=== PATIENT | male | born 1955 | race Hispanic/Latino ===

== ENCOUNTER 2018-06-26 21:50 | Observation (INO) | payer MEDICARE, OTHER ==
[2018-06-26 21:50] VITALS: BMI 24.1
[2018-06-26] MEDS ORDERED: Aspirin 325 mg EC Tablets PO STA (22:17)
--- NOTE | 2018-06-26 22:19 | C.PDOC ---
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 Patient reports he was out with a group of friends in [place], patient wanted to go to [facility] and started walking. Patient states that in the process of walking he started feeling chest pain with SOB. Patient reports 2 weeks ago he had cardiac stent done in his left leg. Patient states he has chest pain on and off but has never been this bad. Patient also states since his surgery his left leg has been swollen. Patient denies fever, chills, nausea, vomit, dizziness, headache, weakness, numbness. Chest pain persists and is 5/10. Time Seen by Provider: 06/26/18 22:08 Chief Complaint (Nursing): Chest Pain History Per: Patient History/Exam Limitations: no limitations Onset/Duration Of Symptoms: Hrs Current Symptoms Are (Timing): Still Present Quality: "Pain" Modifying Factors: None Exacerbating Factors: Exertion Recent travel outside of the [place]: No Additional History Per: Patient Past Medical History Reviewed: Historical Data, Nursing Documentation, Vital Signs Vital Signs: Last Vital Signs Temp 97.2 F L 06/26/18 22:00 Pulse 84 06/26/18 22:00 Resp 16 06/26/18 22:00 BP 131/68 06/26/18 22:00 Pulse Ox 96 06/26/18 22:00 - Medical History PMH: Arthritis, Asthma, Bronchitis, CAD, COPD, Depression, Emphysema, Fractures (Left ankle and rib fractures), HTN, Hypercholesterolemia, TIA Surgical History: Appendectomy, Coronary Stent Other Surgeries: peripheral vascular surgery - [facility] Procedures C-VASC SCAN/ISOTOP FUNCT (12/16/97) CORONAR ARTERIOGR-2 CATH (01/13/13) DILATION OF 2 COR ART WITH DRUG-ELUT INTRALUM, PERC APPROACH (11/09/15) DILATION OF L POPL ART USING DRUG BLLN, PERC APPROACH (06/10/18) DX ULTRASOUND NEC (11/30/14) DX ULTRASOUND-HEART (12/16/97) EXTIRPATION OF MATTER FROM L POPL ART, PERC APPROACH (06/10/18) INFLUENZA VACCINATION (05/20/14) INJECT ANTICOAGULANT (09/02/12) INJECT/INFUSE NEC (01/14/15) INTRODUCE OF OTH THERAP SUBST INTO RESP TRACT, VIA OPENING (05/09/18) LEFT HEART CARDIAC CATH (01/13/13) LT HEART ANGIOCARDIOGRAM (01/13/13) MEASURE OF CARDIAC SAMPL & PRESSURE, L HEART, PERC APPROACH (11/09/15) NEBULIZER THERAPY (08/11/13) PERCUTAN NEEDLE BIOPSY OF PROSTATE (11/30/14) PLAIN RADIOGRAPHY OF LEFT HEART USING LOW OSMOLAR CONTRAST (11/09/15) PLAIN RADIOGRAPHY OF MULT COR ART USING L OSM CONTRAST (11/09/15) RIGID PROCTOSIGMOIDOSCOPY (05/20/14) TREADMILL STRESS TEST (12/16/97) Family History: States: CAD - Social History Hx Tobacco Use: Yes Hx Alcohol Use: No Hx Substance Use: No - Immunization History Hx Tetanus Toxoid Vaccination: No Hx Influenza Vaccination: No Hx Pneumococcal Vaccination: No Review Of Systems Constitutional: Negative for: Fever, Chills Eyes: Negative for: Vision Change Cardiovascular: Positive for: Chest Pain. Negative for: Palpitations Respiratory: Positive for: Shortness of Breath. Negative for: Cough Gastrointestinal: Negative for: Nausea, Vomiting, Abdominal Pain Skin: Negative for: Rash Neurological: Negative for: Weakness, Numbness, Headache, Dizziness Physical Exam - Physical Exam Appears: Non-toxic, No Acute Distress Skin: Normal Color, Warm, Dry Head: Atraumatic, Normacephalic Eye(s): bilateral: Normal Inspection Oral Mucosa: Moist Neck: Normal ROM, Supple Chest: Symmetrical Cardiovascular: Rhythm Regular Respiratory: Normal Breath Sounds, No Rales, No Rhonchi, No Wheezing Gastrointestinal/Abdominal: Soft, No Tenderness, No Guarding, No Rebound Extremity: Normal ROM, No Tenderness, Capillary Refill (< 2 seconds), Swelling (left lower leg), Other (right leg cold to touch.) Extremity: Bilateral: Other (posterior tibial pulse NML) Neurological/Psych: Oriented x3, Normal Speech, Normal Cognition Gait: Steady ED Course And Treatment - Laboratory Results Result Diagrams: 06/26/18 22:26 06/26/18 22:26 Lab Interpretation: No Acute Changes ECG: Interpreted By Me ECG Rhythm: Sinus Rhythm (with LVH), ST/T Changes, Nonspecific Changes ECG Interpretation: No Acute Changes O2 Sat by Pulse Oximetry: 96 (ON RA) Pulse Ox Interpretation: Normal - Radiology CXR: Interpreted by Me CXR Interpretation: Yes: No Acute Disease Reevaluation Time: 23:02 Reassessment Condition: Improved - Physician Consult Information Time Consulting Physician Contacted: 23:04 Physician Contacted: Missael Lancaster Outcome Of Conversation: Discussed with Dr Lancaster. He agrees to keep patient on his service for cardiac observation. Medical Decision Making Medical Decision Making: Plan: * EKG * Labs * CXR * Aspirin 325 mg PO Disposition - Disposition Disposition: HOSPITALIZED Disposition Time: 23:06 Condition: IMPROVED - POA Present On Arrival: None - Clinical Impression Clinical Impression: Chest pain - Scribe Statement The provider has reviewed the documentation as recorded by the Scribe Reji Solorzano All medical record entries made by the Scribe were at my direction and personally dictated by me. I have reviewed the chart and agree that the record accurately reflects my personal performance of the history, physical exam, medical decision making, and the department course for this patient. I have also personally directed, reviewed, and agree with the discharge instructions and disposition.
[2018-06-26] MEDS ORDERED: Aspirin 325 mg EC Tablets PO ONE (22:27)
[2018-06-26 22:35] LABS: BASO # 0.1 K/uL (0.0-0.2); BASO % 1.9 % (0.0-2.0); EOS # 0.4 K/uL (0.0-0.7); EOS % 5.9 % (0.0-4.0); LYMPH % 15.9 % (20.0-40.0); MEAN CELL VOLUME 98.3 fL (80.0-94.0); MEAN CORPUSCULAR HEMOGLOBIN 33.8 pg (27.0-31.0); MEAN CORPUSCULAR HGB CONC 34.4 g/dL (33.0-37.0); MEAN PLATELET VOLUME 7.7 fL (7.2-11.7); MONO # 0.7 K/uL (0.0-0.8); MONO % 10.9 % (0.0-10.0); NEUT # 4.1 K/uL (1.8-7.0); NEUT % 65.4 % (50.0-75.0); NRBC % 0.1 % (0.0-2.0); RBC 3.86 Mil/uL (4.40-5.90); RED CELL DISTRIBUTION WIDTH 14.8 % (11.5-14.5); WHITE BLOOD COUNT 6.2 K/uL (4.8-10.8)
[2018-06-26 22:46] LABS: ALB/GLOB RATIO 1.5 (1.0-2.1); ALBUMIN 4.2 g/dL (3.5-5.0); ALT/SGPT 42 U/L (21-72); AST/SGOT 46 U/L (17-59); BLOOD UREA NITROGEN 11 mg/dL (9-20); CALCIUM 9.3 mg/dl (8.6-10.4); GFR NON-AFRICAN AMERICAN > 60
--- NOTE | 2018-06-27 08:21 | RAD ---
Date of service: 06/26/2018 HISTORY: chest pain COMPARISON: None available. FINDINGS: LUNGS: Mild venous congestion. Biapical pleural thickening with upper lobe granulomatous changes. Bilateral hilar prominence. PLEURA: No significant pleural effusion identified, no pneumothorax apparent. CARDIOVASCULAR: No aortic atherosclerotic calcification present. Normal cardiac size. Tortuous ectatic aorta. OSSEOUS STRUCTURES: No significant abnormalities. VISUALIZED UPPER ABDOMEN: Normal. OTHER FINDINGS: None. IMPRESSION: Mild venous congestion. Biapical pleural thickening with upper lobe granulomatous changes. Bilateral hilar prominence.
[2018-06-27] MEDS: Enoxaparin 40 mg Syringe SC SCH (09:17)
[2018-06-27] MEDS: Aspirin 325 mg EC Tablets PO SCH (09:17)
--- NOTE | 2018-06-27 11:58 | CP.PCM.PN ---
Subjective - Date & Time of Evaluation Date of Evaluation: 06/27/18 Time of Evaluation: 11:59 - Subjective Subjective: PGY3 Note for Dr. Lancaster This patient was seen and examined at bedside this AM; He had no complaints this morning and denied all symptoms. Objective - Vital Signs/Intake and Output Vital Signs (last 24 hours): Temp Pulse Resp BP Pulse Ox 99.2 F 96 H 18 158/81 H 94 L 06/27/18 07:14 06/27/18 07:14 06/27/18 07:14 06/27/18 07:14 06/27/18 08:43 - Medications Medications: Current Medications Aspirin (Ecotrin) 325 mg PO DAILY [facility] Last Admin: 06/27/18 09:17 Dose: 325 mg Clopidogrel Bisulfate (Plavix) 75 mg PO Q24H [facility] Enoxaparin Sodium (Lovenox) 40 mg SC DAILY [facility] Last Admin: 06/27/18 09:17 Dose: 40 mg Pneumococcal Polyvalent Vaccine (Pneumovax 23 Vaccine) 0.5 ml IM .ONCE ONE Stop: 06/29/18 14:01 Rosuvastatin Calcium (Crestor) 20 mg PO HS [facility] Tamsulosin HCl (Flomax) 0.4 mg PO DAILY [facility] Last Admin: 06/27/18 09:17 Dose: 0.4 mg - Labs Labs: 06/26/18 22:26 06/26/18 22:26 - Constitutional Appears: Well, Non-toxic - Head Exam Head Exam: ATRAUMATIC - Eye Exam Eye Exam: EOMI, Normal appearance, PERRL - ENT Exam ENT Exam: Mucous Membranes Moist - Respiratory Exam Respiratory Exam: Clear to Ausculation Bilateral. absent: Rales, Rhonchi, Wheezes - Cardiovascular Exam Cardiovascular Exam: REGULAR RHYTHM, +S1, +S2 - GI/Abdominal Exam GI & Abdominal Exam: Soft, Normal Bowel Sounds. absent: Tenderness - Extremities Exam Extremities Exam: Full ROM, Pedal Edema (on the left, pain at ankle where he had previous fracture). absent: Calf Tenderness - Back Exam Back Exam: NORMAL INSPECTION. absent: CVA tenderness (L), CVA tenderness (R) - Neurological Exam Neurological Exam: Alert, Awake, Oriented x3 - Psychiatric Exam Psychiatric exam: Normal Affect - Skin Skin Exam: Warm Assessment and Plan - Assessment and Plan (Free Text) Assessment: 62M admited to the hospital with chest pain Chest Pain -patient had cardiac stent placed 2 weeks ago -chest pain has resolved -DEONTE negative times two, EKG unchanged -f/u echo -patient is not clinically in fluid overload -c/w aspirin 81mg, Plavix 75mg -Cardiology; Dr. Nesbitt; f/u recs patient can likely go home after cardiology sees the patient c/w to followup with PMD and cardiology as previous for [place] HLD -c/w with lipitor 40mg BPH -c/w with tamsulosin 0.4mg dialy Proph -Hep SC -GI prophylaxis not indicated -Heart Healthy Diet Patient seen and discussed with Dr. Anisha Khoury PGY3
--- NOTE | 2018-06-27 12:44 | CARD ---
APPROVED REPORT Date of service: 06/26/2018 EKG Measurement Heart [id number] <Conclusion> Normal sinus rhythm Minimal voltage criteria for LVH, may be normal variant Nonspecific ST abnormality Abnormal ECG
--- NOTE | 2018-06-27 14:25 | CARD ---
APPROVED REPORT Date of service: 06/27/2018 EXAM: Two-dimensional and M-mode echocardiogram with Doppler and color Doppler. INDICATION Dyspnea Chest Pain 2D DIMENSIONS IVSd1.2 (0.7-1.1cm)LVDd3.7 (3.9-5.9cm) PWd0.9 (0.7-1.1cm)LA [id number] (18-58mL) LVDs2.3 (2.5-4.0cm)FS (%) 36.9 % LVEF (%)67.7 (>50%)LVEF (Brower's)67.96 % M-Mode DIMENSIONS Left Atrium (MM)3.69 (2.5-4.0cm)IVSd1.05 (0.7-1.1cm) Aortic Root3.90 (2.2-3.7cm)LVDd5.01 (4.0-5.6cm) Aortic Cusp Exc.2.32 (1.5-2.0cm)PWd1.19 (0.7-1.1cm) FS (%) 38 %LVDs3.08 (2.0-3.8cm) LVEF (%)68 (>50%) Mitral Valve MV E Weamxrzw99.3cm/sMV A Mmeiqvxz081.2cm/s TDI Lateral E' Peak V7.71cm/sMedial E' Peak V7.38cm/s Tricuspid Valve TR Peak Hcaxrzqk433ix/sTR Peak Gr.[id number] LEFT VENTRICLE The left ventricle is normal size. There is normal left ventricular wall thickness. The left ventricular function is normal. The left ventricular ejection fraction is within the normal range. No regional wall motion abnormalities noted. The left ventricular diastolic function is normal. No left ventricle thrombus noted on this study. There is no ventricular septal defect visualized. There is no left ventricular aneurysm. There is no mass noted in the left ventricle. RIGHT VENTRICLE The right ventricle is normal size. There is normal right ventricular wall thickness. The right ventricular systolic function is normal. ATRIA The left atrium size is normal. The right atrium size is normal. The interatrial septum is intact with no evidence for an atrial septal defect. AORTIC VALVE The aortic valve is normal in structure and function. No aortic regurgitation is present. There is no aortic valvular stenosis. There is no aortic valvular vegetation. MITRAL VALVE The mitral valve is normal in structure and function. There is no evidence of mitral valve prolapse. There is no mitral valve stenosis. There is no mitral valve regurgitation noted. TRICUSPID VALVE The tricuspid valve is normal in structure and function. There is no tricuspid valve regurgitation noted. There is no tricuspid valve prolapse or vegetation. There is no tricuspid valve stenosis. PULMONIC VALVE The pulmonary valve is normal in structure and function. There is no pulmonic valvular regurgitation. There is no pulmonic valvular stenosis. GREAT VESSELS The aortic root is normal in size. The ascending aorta is normal in size. The pulmonary artery is normal. The IVC is normal in size and collapses >50% with inspiration. PERICARDIAL EFFUSION The pericardium appears normal. There is no pleural effusion. <Conclusion> The left ventricular function is normal. The left ventricular ejection fraction is within the normal range. No regional wall motion abnormalities noted.
[2018-06-27 15:11] LABS: CK-MB 1.14 ng/mL (0.0-3.38)
[2018-06-28 01:05] VITALS: O2SAT 99
[2018-06-28 07:47] VITALS: PULSE 88
[2018-06-28 07:50] VITALS: BP 158/75; RESP 18; TEMP 97.7
--- NOTE | 2018-06-28 07:52 | CP.PCM.PN ---
Subjective - Date & Time of Evaluation Date of Evaluation: 06/28/18 Time of Evaluation: 07:51 - Subjective Subjective: PGY2 Progress note for Dr. Lancaster Patient was seen and examined at bedside in no acute distress. Patient reports feeling better. Patient denies chest pain, palpations, dyspnea, cough, nausea, vomiting, headaches. Objective - Vital Signs/Intake and Output Vital Signs (last 24 hours): Temp Pulse Resp BP Pulse Ox 97.7 F 88 18 158/75 H 99 06/28/18 07:00 06/28/18 07:45 06/28/18 07:00 06/28/18 07:00 06/28/18 07:45 Intake and Output: 06/28/18 06/28/18 06:59 18:59 Intake Total 240 Output Total 400 Balance -160 - Medications Medications: Current Medications Aspirin (Ecotrin) 325 mg PO DAILY [facility] Last Admin: 06/27/18 09:17 Dose: 325 mg Clopidogrel Bisulfate (Plavix) 75 mg PO Q24H [facility] Last Admin: 06/27/18 18:14 Dose: 75 mg Enoxaparin Sodium (Lovenox) 40 mg SC DAILY [facility] Last Admin: 06/27/18 09:17 Dose: 40 mg Pneumococcal Polyvalent Vaccine (Pneumovax 23 Vaccine) 0.5 ml IM .ONCE ONE Stop: 06/28/18 10:01 Rosuvastatin Calcium (Crestor) 20 mg PO [facility] Last Admin: 06/27/18 21:58 Dose: 20 mg Tamsulosin HCl (Flomax) 0.4 mg PO DAILY [facility] Last Admin: 06/27/18 09:17 Dose: 0.4 mg - Labs Labs: 06/26/18 22:26 06/26/18 22:26 - Constitutional Appears: No Acute Distress - Head Exam Head Exam: NORMAL INSPECTION - Eye Exam Eye Exam: EOMI, Normal appearance - ENT Exam ENT Exam: Mucous Membranes Moist - Respiratory Exam Respiratory Exam: NORMAL BREATHING PATTERN. absent: Rales, Rhonchi, Wheezes, Stridor - Cardiovascular Exam Cardiovascular Exam: REGULAR RHYTHM, +S1, +S2 - GI/Abdominal Exam GI & Abdominal Exam: Soft, Normal Bowel Sounds. absent: Distended, Firm, G uarding, Tenderness - Extremities Exam Extremities Exam: Normal Inspection. absent: Pedal Edema, Tenderness - Neurological Exam Neurological Exam: Alert, Awake, Oriented x3 - Psychiatric Exam Psychiatric exam: Normal Affect, Normal Mood - Skin Skin Exam: Dry, Intact, Normal Color, Warm Assessment and Plan - Assessment and Plan (Free Text) Plan: 62M admitted to the hospital with chest pain Chest Pain -patient had cardiac stent placed 2 weeks ago -chest pain has resolved -DEONTE negative times three, EKG unchanged -echo: unremarkable -patient is not clinically in fluid overload -c/w aspirin 81mg, Plavix 75mg -Cardiology; Dr. Nesbitt; f/u recs HLD -c/w with lipitor 40mg BPH -c/w with tamsulosin 0.4mg dialy Proph -Hep SC -GI prophylaxis not indicated -Heart Healthy Diet The patient is stable for d/c as per Dr. Lancaster Please continue to take all of your prior medications and followup with your cardioligist within one week. If symptoms worsen or reoccur, patient should return to the nearest ED.
--- NOTE | 2018-06-28 09:27 | HP ---
HISTORY OF PRESENT ILLNESS: The patient presented to the hospital with chief complaint of chest pain. Patient came to the ER, advised admission. PHYSICAL EXAMINATION: GENERAL: The patient is awake, alert, and oriented. VITAL SIGNS: Temperature 98, pulse 90. HEENT: Within normal limits. NECK: Supple. CHEST: Symmetrical. HEART: Regular. ABDOMEN: Soft. EXTREMITIES: No edema. Patient suffers from ACS. The patient is to bed rest, supportive care. Missael Lancaster MD
[2018-06-28] MEDS: Aspirin 325 mg EC Tablets PO SCH (09:30)
[2018-06-28] MEDS: Enoxaparin 40 mg Syringe SC SCH (09:30)
[2018-06-28] MEDS ORDERED: Pneumococcal 23-Valent Vaccine IM ONE (10:00)
[2018-06-29] MEDS ORDERED: Pneumococcal 23-Valent Vaccine IM ONE (14:00)
== END 2018-06-28 12:53 | disposition home or self-care (01) ==
LOC: C.ER 21:50 → C.9E 23:06 → C.6T 06-27 00:34 → C.5S 06-27 01:40
PROVIDERS: ADMIT Internal Medicine Pulmonary Disease; ATTEND Internal Medicine Pulmonary Disease
DX: R07.9 Chest pain, unspecified (principal); E78.00 Pure hypercholesterolemia, unspecified; E78.5 Hyperlipidemia, unspecified; I10 Essential (primary) hypertension; I25.10 Atherosclerotic heart disease of native coronary artery without angina pectoris; J44.9 Chronic obstructive pulmonary disease, unspecified; N40.0 Benign prostatic hyperplasia without lower urinary tract symptoms; Z86.73 Personal history of transient ischemic attack (TIA), and cerebral infarction without residual deficits; Z87.891 Personal history of nicotine dependence; Z95.5 Presence of coronary angioplasty implant and graft
CPT/HCPCS: 36415; 71045; 80053; 84484; 85025; 93005; 93306; 99285; G0378; J1650